=== PATIENT | female | born 1970 | race Caucasian/White ===

== ENCOUNTER 2017-09-13 18:59 | Emergency (ER) | payer MEDICARE, MEDICAID ==
[~2017-09-13] VITALS: Ht 162.6 cm; Wt 75.8 kg
[~2017-09-13 18:59] MED LIST: ALDACTONE25 MG PO; ANTIVERT25 MG PO; APAP500 PO; ASPIRIN81 M2 PO; BONIVA150 MG PO; CALCIUM 500 +1 EAC5 PO; CALCIUM500 M1 PO; CIPRO250 M1 PO; CIPRO500 M1 PO; CIPRO500 MG PO; COLACE100 MG PO; COREG6.25 MG PO; COUMADIN 5 MG TA5 M1 PO; ENOXAPARIN80 MG/0.1 SUBQ; FEVERALL120 MG PO; FLAGYL500 MG PO; FLEXERIL PO; GIAZO1.1 GM PO; KLOR-CON 1010 MEQ PO; LANTUS SUBQ; LASIX 40 MG TAB40 M2 PO; MACROBID 100 M100 M1 PO; METOPROLOL TART25 MG PO; MILK OF MA2400 MG/10 PO; MYFORTIC180 MG PO; NEURONTIN 300300 M1 PO; NOVOLOG100 UNIT/1 SUBQ; NYAMYC15 GM TOP; OMEPRAZOLE20 M2 PO; ONDANSETRON HCL4 M2 PO; OXYCONTIN10 M1 PO; PENTAMIDINE 30300 MG IH; PREDNISONE 10 M10 M1 PO; PREDNISONE 10 M10 MG PO; SENNA PO; SENOKOT8.6 MG PO; TERBINAFINE15 GM TP; TRINATE TABLET1 TAB PO; VITAMIN D2000 UNIT PO; XANAX 0.25 MG0.25 MG PO
[2017-09-13 19:33] LABS: HEMATOCRIT 42.4 % (37.0-47.0); HEMOGLOBIN 13.3 gm/dL (12.0-15.0); MCH 26.5 pg (26.0-34.0); MCHC 31.2 g/dL (28.0-37.0); MCV 84.9 fL (80.0-100.0); MPV 8.2 fl. (7.2-11.1); NUCLEATED RBCS 0 /100WBC; PLATELET COUNT* 467 thou/uL (150-400); RBC 4.99 mil/uL (4.20-5.00); RDW-CV 15.7 % (10.5-14.5)
[2017-09-13 19:49] LABS: CALCIUM 9.4 mg/dL (8.5-10.1); CREATININE 1.5 mg/dL (0.6-1.3); POTASSIUM 4.1 mmol/L (3.5-5.1)
[2017-09-13 19:59] LABS: ALBUMIN 3.6 g/dL (3.4-5.0); TOTAL BILIRUBIN 0.2 mg/dL (<0.1-1.0); TOTAL PROTEIN 7.3 g/dL (6.4-8.2)
[2017-09-13 20:09] LABS: ABSOLUTE MONOCYTES 1.5 thou/uL (0.0-1.2); ABSOLUTE NEUTROPHILS 21.5 thou/uL (1.6-8.1); ANISOCYTOSIS 1+; MACROCYTES Occasional; MICROCYTES Occasional; PLATELET ESTIMATE INCREASED; POLYCHROMASIA 1+
[2017-09-14] MEDS ORDERED: ZOFRAN ODT4 MG PO (00:06)
[2017-09-14 00:25] VITALS: BP 133/87
--- NOTE | 2017-09-14 13:49 | EKG ---
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 : 1970 Requested By: Fátima Schaeffer Order Number: [id number] Reading MD: Lance Emerson Measurements Intervals [place] Rate: 133 P: 5 [place]: 129 QRS: -53 QRSD: 75 T: 2 QT: 294 QTc: 438 Interpretive Statements Sinus tachycardia Left anterior fascicular block RSR' in V1 or V2, right VCD or RVH Compared to ECG 08/03/2017 17:18:26 Left anterior fascicular block now present RSR' in V1 or V2 now present Electronically Signed On 09-14-2017 13:49:07 [employer] by Lance Emerson [email or web address] <ELECTRONICALLY SIGNED> By: Lance Emerson MD, FACC 09/14/17 1349 16 16 Lance Emerson MD, FAC /EPI
== END 2017-09-14 00:27 | disposition home or self-care (01) ==
LOC: M.ERS 18:59
PROVIDERS: Emergency Medicine
DX: E86.0 Dehydration (principal); T78.1XXA Other adverse food reactions, not elsewhere classified, initial encounter; M32.9 Systemic lupus erythematosus, unspecified; K51.90 Ulcerative colitis, unspecified, without complications; E11.9 Type 2 diabetes mellitus without complications; M79.7 Fibromyalgia; F41.9 Anxiety disorder, unspecified; F43.10 Post-traumatic stress disorder, unspecified; Z79.4 Long term (current) use of insulin; Z88.8 Allergy status to other drugs, medicaments and biological substances; Z88.5 Allergy status to narcotic agent; Z88.1 Allergy status to other antibiotic agents; Z88.2 Allergy status to sulfonamides; Z88.0 Allergy status to penicillin; X58.XXXA Exposure to other specified factors, initial encounter

== ENCOUNTER 2018-11-04 21:41 | Emergency (ER) | payer MEDICARE, MEDICAID ==
[~2018-11-04] VITALS: Ht 152.4 cm; Wt 78.0 kg
[~2018-11-04 21:41] MED LIST changes: +ZOFRAN ODT4 MG PO
[2018-11-04] MEDS ORDERED: NORVASC2.5 MG PO (21:58)
[2018-11-04 22:15] LABS: ABSOLUTE BASOPHILS 0.1 thou/uL (0.0-0.2); ABSOLUTE EOSINOPHILS 0.1 thou/uL (0.0-0.7); ABSOLUTE LYMPHOCYTES 1.8 thou/uL (0.8-5.3); ABSOLUTE MONOCYTES 0.8 thou/uL (0.0-1.2); ABSOLUTE NEUTROPHILS 11.8 thou/uL (1.6-8.1); BASOPHILS 0.7 %; EOSINOPHILS 0.7 %; HEMATOCRIT 46.3 % (37.0-47.0); HEMOGLOBIN 15.1 gm/dL (12.0-15.0); LYMPHOCYTES 12.5 %; MCH 27.7 pg (26.0-34.0); MCHC 32.5 g/dL (28.0-37.0); MCV 85.3 fL (80.0-100.0); MONOCYTES 5.2 %; MPV 8.7 fl. (7.2-11.1); NUCLEATED RBCS 0 /100WBC; PLATELET COUNT* 327 thou/uL (150-400); POLYS 80.9 %; RBC 5.43 mil/uL (4.20-5.00); RDW-CV 15.5 % (10.5-14.5); WBC 14.6 thou/uL (4.0-11.0)
[2018-11-04 22:34] LABS: ALBUMIN 3.5 g/dL (3.4-5.0); CALCIUM 9.1 mg/dL (8.5-10.1); CREATININE 1.5 mg/dL (0.6-1.3); POTASSIUM 3.9 mmol/L (3.5-5.1); TOTAL BILIRUBIN 0.5 mg/dL (<0.1-1.0); TOTAL PROTEIN 7.8 g/dL (6.4-8.2)
[2018-11-04 22:38] LABS: URINE BILIRUBIN NEGATIVE (Negative); URINE BLOOD TRACE (Negative); URINE CLARITY CLEAR; URINE COLOR YELLOW; URINE GLUCOSE-RANDOM NEGATIVE (Negative); URINE KETONES NEGATIVE (Negative); URINE LEUKOCYTES-REFLEX NEGATIVE (Negative); URINE NITRITE-REFLEX NEGATIVE (Negative); URINE PROTEIN 3+ (Negative); URINE SPECIFIC GRAVITY 1.025 (1.005-1.030); URINE UROBILINOGEN 0.2 E.U./dl (0.2-1.0)
[2018-11-04 22:47] LABS: BACTERIA-REFLEX 1-9 Few /HPF (None Seen); HYALINE CASTS 0-3 Few /LPF (None Seen); MUCUS None Seen strn/LPF (None Seen); SQUAMOUS 4-10 Moderate /LPF (0-3); URINE WBC-REFLEX 0-5 Rare /HPF (0-5)
[2018-11-04 22:48] LABS: CRYSTALS None Seen /LPF (None Seen); URINE RBC 0-2 Rare /HPF (0-2)
[2018-11-04 22:59] LABS: INFLUENZA A ANTIGEN None Detected (None Detect); INFLUENZA B ANTIGEN None Detected (None Detect)
[2018-11-05 02:01] VITALS: BP 152/98
--- NOTE | 2018-11-05 17:42 | EKG ---
[place] [address] ELECTROCARDIOGRAM REPORT Name: HASMUKH AMARO Room: 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: Marya IRIZARRY : 1970 Requested By: Jennifer Michaud Order Number: [id number] MD: Lance Emerson Measurements Intervals [place] Rate: 114 P: 16 [place]: 135 QRS: 65 QRSD: 82 T: 1 QT: 307 QTc: 423 Interpretive Statements Sinus tachycardia Baseline wander in lead(s) V6 Compared to ECG 09/13/2017 19:17:03 ST (T wave) deviation now present Left anterior fascicular block no longer present Electronically Signed On 11-05-2018 17:42:14 CDT by Lance Emerson [email or web address] <ELECTRONICALLY SIGNED> By: Lance Emerson MD, FACC 11/05/18 1742 [id number] Lance Emerson MD, FAC /EPI
== END 2018-11-05 02:04 | disposition home or self-care (01) ==
LOC: M.ERS 21:41
PROVIDERS: Nurse Practitioner Family
DX: G43.909 Migraine, unspecified, not intractable, without status migrainosus (principal); R11.2 Nausea with vomiting, unspecified; M54.9 Dorsalgia, unspecified; G89.29 Other chronic pain; M32.9 Systemic lupus erythematosus, unspecified; E11.9 Type 2 diabetes mellitus without complications; M79.7 Fibromyalgia; F41.9 Anxiety disorder, unspecified; I10 Essential (primary) hypertension; Z88.8 Allergy status to other drugs, medicaments and biological substances; Z88.4 Allergy status to anesthetic agent; Z88.1 Allergy status to other antibiotic agents; Z88.5 Allergy status to narcotic agent; Z88.0 Allergy status to penicillin; Z88.2 Allergy status to sulfonamides; Z79.4 Long term (current) use of insulin

== ENCOUNTER 2021-09-26 11:22 | Emergency (ER) | payer MEDICARE, MEDICAID ==
[~2021-09-26] VITALS: Ht 152.4 cm; Wt 72.6 kg
[~2021-09-26 11:22] MED LIST changes: +NORVASC2.5 MG PO
[2021-09-26 13:19] VITALS: BP 152/95
== END 2021-09-26 13:19 | disposition home or self-care (01) ==
LOC: M.ERS 11:22
DX: M71.21 Synovial cyst of popliteal space [Baker], right knee (principal); M79.604 Pain in right leg; E11.9 Type 2 diabetes mellitus without complications; F41.9 Anxiety disorder, unspecified; Z79.899 Other long term (current) drug therapy; Z88.0 Allergy status to penicillin; Z88.2 Allergy status to sulfonamides; Z88.5 Allergy status to narcotic agent; Z88.6 Allergy status to analgesic agent